=== PATIENT | male | born 1985 | race Caucasian/White ===

== ENCOUNTER → 2017-01-17 | Outpatient (CLI) | payer BC ==
[2014-06-08 13:06] VITALS: BP 120/72
[~2017-01-17] MED LIST: SEROQUEL100 MG PO; WELLBUTRIN SR150 MG PO
[2017-01-17 23:39] LABS: HEPATITIS B SURFACE ANTIBODY 37.7 (())
== END ==
LOC: LAB 07:20
PROVIDERS: Nurse Practitioner Family
DX: Z23 Encounter for immunization (principal); Z88.1 Allergy status to other antibiotic agents; Z88.2 Allergy status to sulfonamides

== ENCOUNTER → 2017-07-24 | Outpatient (CLI) | payer SELFPAY ==
[2014-06-08 13:06] VITALS: BP 120/72
[2017-07-24 16:10] LABS: EOS # 0.1 (0.04-0.40); EOS % 0.9 % (0.0-4.0); HEMATOCRIT 42.7 % (42.0-52.0); HEMOGLOBIN 14.4 g/dL (13.5-18.0); LYMPH# 2.4 (1.50-4.00); MEAN CELL VOLUME 87 fl (78-100); MEAN CORPUSCULAR HEMOGLOBIN 29 pg (27-31); MEAN CORPUSCULAR HGB CONC 34 g/dL (33-37); MEAN PLATELET VOLUME 8.7 fl (7.4-10.4); MONO # 0.5 (0.20-0.80); NEU # 2.7 (1.40-6.50); PLATELET COUNT 224 K/mm3 (130-400); RED BLOOD COUNT 4.89 M/mm3 (4.20-5.60); RED CELL DISTRIBUTION WIDTH 13.2 % (11.5-14.5); WHITE BLOOD COUNT 5.7 K/mm3 (4.8-10.8)
[2017-07-24 17:08] LABS: ALBUMIN 5.1 g/dL (3.5-5.0); BUN/CREATININE RATIO 22.6 (6.0-26.0); CALCIUM 9.5 mg/dL (8.4-10.2); POTASSIUM 4.1 mmol/L (3.6-5.0); TOTAL BILIRUBIN 0.6 mg/dL (0.2-1.3); TOTAL PROTEIN 8.1 g/dL (6.3-8.2)
== END ==
LOC: LAB 15:37
PROVIDERS: Family Medicine
DX: Z00.00 Encounter for general adult medical examination without abnormal findings (principal)

== ENCOUNTER → 2017-12-15 | Outpatient (CLI) | payer BC ==
[2014-06-08 13:06] VITALS: BP 120/72
== END ==
LOC: RAD 10:48
DX: R16.0 Hepatomegaly, not elsewhere classified (principal); K76.9 Liver disease, unspecified; R94.5 Abnormal results of liver function studies

== ENCOUNTER → 2019-11-06 | Outpatient (CLI) | payer BC ==
[2014-06-08 13:06] VITALS: BP 120/72
== END ==
LOC: LAB 09:42
DX: Z20.828 Contact with and (suspected) exposure to other viral communicable diseases (principal); Y99.0 Civilian activity done for income or pay

== ENCOUNTER 2020-03-25 13:35 | Emergency (ER) | payer OTHER, BC ==
[~2020-03-25] VITALS: Ht 193 cm; Wt 100.0 kg
[~2020-03-25 13:35] MED LIST changes: -WELLBUTRIN SR150 MG PO; +WELLBUTRIN XL300 M1 PO
[2020-03-25] MEDS ORDERED: POLYTRIM 1000010 ML OP (15:14)
[2020-03-25 15:22] VITALS: BP 125/72
[2020-03-27] MEDS ORDERED: NORCO 325 MG-51 TA1 PO ×2 (09:59)
== END 2020-03-25 15:23 | disposition home or self-care (01) ==
LOC: ED 13:35
DX: Z77.098 Contact with and (suspected) exposure to other hazardous, chiefly nonmedicinal, chemicals (principal); F32.9 Major depressive disorder, single episode, unspecified
CPT/HCPCS: 90715

== ENCOUNTER → 2023-01-13 | Outpatient (CLI) | payer BC ==
[~2023-01-13] MED LIST changes: +NORCO 325 MG-51 TA1 PO; +POLYTRIM 1000010 ML OP
== END ==
LOC: CARDREHAB 12:42
DX: R40.0 Somnolence (principal)
CPT/HCPCS: G0399